=== PATIENT | female | born 1985 | race Caucasian/White ===

== ENCOUNTER 2017-09-12 05:41 | Emergency (ER) | payer MEDICAID ==
[2017-09-12] MEDS: IBUPROFEN 800 MG TAB PO (07:06)
== END 2017-09-12 07:11 | disposition home or self-care (01) ==
LOC: FTE 05:41
DX: H92.01 Otalgia, right ear (principal); E11.9 Type 2 diabetes mellitus without complications; Z79.84 Long term (current) use of oral hypoglycemic drugs
CPT/HCPCS: 99283; Z7502